=== PATIENT | female | born 1975 | race Caucasian/White ===

== ENCOUNTER 2019-02-28 07:51 | Emergency (ER) | payer BC ==
--- NOTE | 2019-02-28 07:59 | UC ---
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 no chest pain. some mild nausea Pleasant 43 yo female c/o dizzy sensation since yesterday. Noted while at the gym, but didn't go away. Worse lying down last night. + nausea, no vomit. no h /a, vis / aud changes. No recent illness. no rash. Hx ENT polyps, has seen Dr. Malik in the past, not recently. Has had some occas dizzy episodes in the past, not this bad. There is somewhat spinning sensation. - History of Current Complaint Stated Complaint: DIZZY Time Seen by Provider: 02/28/19 07:58 Hx Obtained From: Patient Hx Last Menstrual Period: currently - Allergy/Home Medications Allergies/Adverse Reactions: Allergies Allergy/AdvReac Type Severity Reaction Status Date / Time No Known Allergies Allergy Verified 02/28/19 08:00 Home Medications: Home Medications Cyanocobalamin (Vitamin B-12) [Vitamin B-12] 1 tab PO DAILY 02/28/19 [History Confirmed 02/28/19] Ibuprofen 400 mg PO ONCE PRN 02/28/19 [History Confirmed 02/28/19] Multivitamin [Multivitamins] 1 tab PO DAILY 02/28/19 [History Confirmed 02/28/19 ] PMH/Surg Hx/FS Hx/Imm Hx Previously Healthy: Yes - Surgical History Surgical History: None - Family History Known Family History: Positive: None - Social History Alcohol Use: None Substance Use Type: None Smoking Status (MU): Never Smoked Tobacco Review of Systems All Other Systems Reviewed And Are Negative: Yes Constitutional: Positive: Negative - see hpi Skin: Positive: Negative Eyes: Positive: Other - see hpi ENT: Positive: Other - see hpi Respiratory: Positive: Negative Cardiovascular: Positive: Negative Gastrointestinal: Positive: Negative Genitourinary: Positive: Negative Motor: Positive: Negative Neurovascular: Positive: Negative Musculoskeletal: Positive: Negative Neurological: Positive: Other - see hpi Psychological: Positive: Negative Is Patient Immunocompromised?: No Physical Exam Triage Information Reviewed: Yes Appearance: Well-Appearing, Well-Nourished Vital Signs Reviewed: Yes Eye Exam: Normal - normal except mild horiz nystagmus ENT Exam: Other - TMS + cerumen impaction. EAC 's flushed by RN -> TMs visible (not entirely, but intact as visible) - dull dark heredia, rtx'd. Oroph benign. Neck supple. Neck exam: Normal Neck: Positive: Supple Respiratory Exam: Normal Respiratory: Positive: Chest non-tender, Lungs clear, Normal breath sounds, No respiratory distress, No accessory muscle use Cardiovascular Exam: Normal Cardiovascular: Positive: Pulses Normal, Brisk Capillary Refill Abdominal Exam: Normal Abdomen Description: Positive: Nontender Musculoskeletal Exam: Normal - moves x 4 ext's. Balance not tested, gait slow steady Neurological Exam: Other - mild nystagmus. C/o dizziness c/w vertigenous c/o's. O/w grossly nonfocal Psychological Exam: Normal - conversing easily and appropriately Course/Dx - Course Course Of Treatment: EKG NSR at 63 bpm. No old for comp. BG 102mg / dl. Orthostatic BP not out of range. Urine dip 08:1 5 not yet available. Urine dip noted. EAC's flushed. TM's bilat dull, heredia. Reviewed coa / tx plan. Reviewed controlled subst talk, no issues reported Will f/u with PCP, Dr. Mayes. Will f /u with ENT, she has seen Dr. Malik in the past, but it has been a long while. Will call to schedule an appointment. If new referral needed, she will check with her PCP. Questions as posed answered to the best of my ability. addendum: [employer] Reference #: [id number] - Diagnoses Provider Diagnosis: Vertigo, Eustachian tube obstruction, Serous otitis media Discharge ED - Sign-Out/Discharge Documenting (check all that apply): Patient Departure All imaging exams completed and their final reports reviewed: No Studies - Discharge Plan Condition: Stable Disposition: HOME Prescriptions: Diazepam TAB(*) [Valium TAB(*)] 2 mg PO TID PRN #6 tab MDD 3 PRN Reason: Dizziness Meclizine TAB* [Antivert 12.5 TAB*] 25 mg PO TID PRN #30 tab PRN Reason: Dizziness methylPREDNISolone [Medrol] 4 mg PO DAILY #1 tab.ds.pk Ondansetron HCl [Zofran] 4 mg PO Q6H PRN #12 tablet PRN Reason: Nausea Patient Education Materials: Vertigo (ED), Serous Otitis Media (ED) Forms: *Work Release Referrals: Lisbeth Turk MD [Primary Care Provider] - Maurilio Malik MD [Medical Doctor] - Additional Instructions: Hydrate. Do not drive or operate heavy machinery until you are feeling better. Follow up with Dr. Mayes - in the next couple weeks, if possible. Follow up with Dr. Malik - next available. Seek medical attention for worse or new problems. Consider brief use of an over the counter decongestant, short acting, but not before bed. - Billing Disposition and Condition Condition: STABLE Disposition: Home
[2019-02-28 08:18] VITALS: BP 127/74
[2019-02-28] MEDS ORDERED: Ondansetron ODT TAB* 4 MG PO ONE (08:37)
== END 2019-02-28 09:42 | disposition home or self-care (01) ==
LOC: UCEAST 07:51
DX: R42 Dizziness and giddiness (principal); H68.103 Unspecified obstruction of Eustachian tube, bilateral; H65.93 Unspecified nonsuppurative otitis media, bilateral
CPT/HCPCS: 81003; 84702; 93005; 99213; A9270-GY; G0463